=== PATIENT | male | born 1955 | race Caucasian/White ===

== ENCOUNTER 2017-11-27 10:42 | Emergency (ER) | payer OTHER ==
[~2017-11-27] VITALS: Ht 182.9 cm; Wt 87.1 kg
[2017-11-27] MEDS ORDERED: LISINOPRIL20 MG (11:03)
[2017-11-27] MEDS ORDERED: COZAAR100 MG (11:03)
== END 2017-11-27 15:00 | disposition home or self-care (01) ==
LOC: ER 10:42
DX: J40 Bronchitis, not specified as acute or chronic (principal); J18.0 Bronchopneumonia, unspecified organism

== ENCOUNTER → 2018-02-21 | Emergency (ER) | payer OTHER ==
[~2018-02-21] VITALS: Ht 182.9 cm; Wt 88.5 kg
[~2018-02-21] MED LIST: ALBUTEROL2.5 MG/3 M IH; COZAAR100 MG; DESCOVY 200-251 EACH PO; ISENTRESS400 MG PO; LISINOPRIL20 MG; NORVIR100 M1 PO; PREZISTA800 MG PO; ZYNCOF 20-400120 ML PO
== END | disposition home or self-care (01) ==
LOC: ER 16:32
DX: J20.9 Acute bronchitis, unspecified (principal); R53.81 Other malaise

== ENCOUNTER 2019-02-20 10:31 | Emergency (ER) | payer OTHER ==
[~2019-02-20] VITALS: Ht 182.9 cm; Wt 83.9 kg
[2019-02-20] MEDS ORDERED: EDURANT25 MG PO (11:02)
[2019-02-20] MEDS ORDERED: TIVICAY50 MG PO (11:02)
== END 2019-02-20 20:17 | disposition home or self-care (01) ==
LOC: ER 10:31
DX: R07.89 Other chest pain (principal); R51 Headache

== ENCOUNTER 2019-12-10 15:20 | Emergency (ER) | payer OTHER ==
[~2019-12-10] VITALS: Ht 182.9 cm; Wt 86.2 kg
[~2019-12-10 15:20] MED LIST changes: +EDURANT25 MG PO; +TIVICAY50 MG PO
[2019-12-10] MEDS ORDERED: ZESTRIL40 M1 (15:35)
[2019-12-10] MEDS ORDERED: DILTIAZEM 24HR180 MG (15:35)
[2019-12-10] MEDS ORDERED: CARDURA1 MG (15:36)
[2019-12-10] MEDS ORDERED: JULUCA 50-25 M1 EACH (15:37)
[2019-12-10] MEDS ORDERED: TAMS0.4C PO (19:12)
== END 2019-12-10 19:31 | disposition home or self-care (01) ==
LOC: ER 15:20
DX: N39.0 Urinary tract infection, site not specified (principal); N40.0 Benign prostatic hyperplasia without lower urinary tract symptoms; I16.0 Hypertensive urgency; I10 Essential (primary) hypertension

== ENCOUNTER 2020-04-11 13:44 | Emergency (ER) | payer OTHER ==
[~2020-04-11] VITALS: Ht 167.6 cm; Wt 90.7 kg
[~2020-04-11 13:44] MED LIST changes: +CARDURA1 MG; +DILTIAZEM 24HR180 MG; +JULUCA 50-25 M1 EACH; +TAMS0.4C PO; +ZESTRIL40 M1
== END 2020-04-11 20:52 | disposition home or self-care (01) ==
LOC: ER 13:44
DX: M54.12 Radiculopathy, cervical region (principal)

== ENCOUNTER → 2023-01-31 | Emergency (ER) | payer OTHER ==
[~2023-01-31] VITALS: Ht 182.9 cm; Wt 86.2 kg
[2023-01-31 20:23] LABS: HEMATOCRIT 39.6 % (39.0-48.0); HEMOGLOBIN 13.6 g/dL (13-16.00); MEAN CORPUSCULAR HGB CONC 34.5 g/dl (32.0-36.0); PLATELET COUNT 226 K/uL (150-450); RED BLOOD COUNT 4.26 M/uL (4.00-6.00); RED CELL DISTRIBUTION WIDTH 15.3 % (11.5-14.5)
[2023-01-31 20:39] LABS: CALCIUM 9.2 mg/dL (8.5-10.1); CREATININE SERUM 1.05 mg/dL (0.70-1.30); GFR 70.67; POTASSIUM 3.32 mEq/L (3.5-5.1)
== END | disposition left against medical advice (07) ==
LOC: ER 18:39
PROVIDERS: General Practice
DX: I10 Essential (primary) hypertension (principal); R51.9 Headache, unspecified

== ENCOUNTER 2023-10-30 17:55 | Emergency (ER) | payer OTHER ==
[~2023-10-30] VITALS: Ht 172.7 cm; Wt 90.7 kg
[~2023-10-30 17:55] MED LIST changes: +ACETAMINOPHEN650 M2 PO; +KETO10TA2 PO
[2023-10-30 19:26] LABS: HEMATOCRIT 40.1 % (39.0-48.0); HEMOGLOBIN 13.9 g/dL (13-16.00); MEAN CELL VOLUME 95.6 fL (80.0-100.00); MEAN CORPUSCULAR HEMOGLOBIN 33.2 pg (27.00-32.0); MEAN CORPUSCULAR HGB CONC 34.7 g/dl (32.0-36.0); PLATELET COUNT 206 K/uL (150-450); RED BLOOD COUNT 4.19 M/uL (4.00-6.00)
[2023-10-30 19:46] LABS: ALBUMIN 3.8 gm/dL (3.4-5.0); BILIRUBIN TOTAL 0.19 mg/dL (0.3-1.2); CREATININE SERUM 0.91 mg/dL (0.70-1.30); GFR 83.1; GLOBULINA 3.2 G/DL (2.4-3.5); POTASSIUM 3.86 mEq/L (3.5-5.1)
[2023-10-30] MEDS ORDERED: CLONIDINE HCL 0.1 MG TABLET PO ONE ×2 (21:30→21:43)
== END 2023-10-30 23:41 | disposition home or self-care (01) ==
LOC: ER 17:56
PROVIDERS: General Practice
DX: I10 Essential (primary) hypertension (principal); E11.9 Type 2 diabetes mellitus without complications